=== PATIENT | female | born 2000 | race Caucasian/White ===

== ENCOUNTER 2024-09-28 14:14 | Emergency (ER) | payer OTHER | END 2024-09-28 16:37 | disposition home or self-care (01) | LOC: FB.ED 14:14 | DX: S52.125A Nondisplaced fracture of head of left radius, initial encounter for closed fracture (principal); F17.290 Nicotine dependence, other tobacco product, uncomplicated; W10.9XXA Fall (on) (from) unspecified stairs and steps, initial encounter | CPT/HCPCS: 29105; 73080-LT; 99283-25 ==